=== PATIENT | male | born 1955 | race Caucasian/White ===

== ENCOUNTER 2016-10-25 21:52 | Emergency (ER) | payer OTHER ==
[~2016-10-25] VITALS: Ht 175.3 cm; Wt 104.8 kg
[2016-10-25] MEDS ORDERED: LEVETIRACETAM 500 MG TAB PO STA (22:08)
--- NOTE | 2016-10-25 22:13 | EMERGENCY ROOM VISIT NOTE ---
History Report prepared by Corey: Sundeep Bradshaw Under the Supervision of: Dr. Martin Jaarmillo D.O. First contact with patient: 22:00 Chief Complaint: ALCOHOL OVERDOSE Stated Complaint: ETOH History of Present Illness The patient is a 61 year old male who presents to the Emergency Room with complaints of alcohol intoxication that began a couple of hours ago. This HPI is limited secondary to intoxication. The patient attended a wedding in [place] , and he is currently in the process of driving back to his home state, [place]. He was in his hotel room this evening and called the ambulance for himself. He has been drinking heavily for the past several days. Today, he was drinking vodka. He states that he wants "to be treated." He also stated that he "cannot go through with withdrawal and expect to live." He notes that has multiple medical problems that include cirrhosis and seizures. He usually takes 2000 mg Keppra PO twice a day, but has not taken any for the past couple of days. 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 Past Medical & Surgical Limited secondary to intoxication Family History Limited secondary to intoxication. Social History Smoking Status: Unknown if Ever Smoked Smokeless Tobacco Use: Unknown Alcohol Use: occasionally Social History: Unable to complete secondary to intoxication. Current/Historical Medications Scheduled Amlodipine (Norvasc), 10 MG PO DAILY Levetiracetam (Keppra), 2,000 MG PO BID Lisinopril (Zestril), Unknown Dose PO DAILY Physical Exam Vital Signs Date Time Temp Pulse Resp B/P (MAP) Pulse Ox O2 Delivery O2 Flow Rate FiO2 10/25/16 22:10 91 Room Air 10/25/16 22:05 97 10/25/16 21:57 36.6 99 21 152/105 96 Room Air Physical Exam GENERAL: Awake, alert, well-appearing, in no distress. Alcohol on breath. HENT: Normocephalic, atraumatic. Oropharynx unremarkable. EYES: Normal conjunctiva. Sclera non-icteric. NECK: Supple. No nuchal rigidity. FROM. No JVD. RESPIRATORY: Clear to auscultation. CARDIAC: Regular rate, normal rhythm. Extremities warm and well perfused. Pulses equal. Mildly hypertensive. ABDOMEN: Soft, non-distended. No tenderness to palpation. No rebound or guarding. No masses. RECTAL: Deferred. MUSCULOSKELETAL: Chest examination reveals no tenderness. The back is symmetrical on inspection without obvious abnormality. There is no CVA tenderness to palpation. No joint edema. LOWER EXTREMITIES: Calves are equal size bilaterally and non-tender. No edema. No discoloration. NEURO: Normal sensorium. No sensory or motor deficits noted. SKIN: No rash or jaundice noted. Medical Decision & Procedures Laboratory Results 10/25/16 22:15 Red Blood Count 4.90, Mean Corpuscular Volume 90.2, Mean Corpuscular Hemoglobin 31.0, Mean Corpuscular Hemoglobin Concent 34.4, Mean Platelet Volume 7.9, Neutrophils (%) (Auto) 49.7, Lymphocytes (%) (Auto) 37.5, Monocytes (%) (Auto) 9.0, Eosinophils (%) (Auto) 2.8, Basophils (%) (Auto) 0.7, Neutrophils # (Auto) 3.33, Lymphocytes # (Auto) 2.51, Monocytes # (Auto) 0.60, Eosinophils # (Auto) 0.19, Basophils # (Auto) 0.05 10/25/16 22:15 Test 10/25/16 22:15 White Blood Count 6.70 K/uL (4.8-10.8) Red Blood Count 4.90 M/uL (4.7-6.1) Hemoglobin 15.2 g/dL (14.0-18.0) Hematocrit 44.2 % (42-52) Mean Corpuscular Volume 90.2 fL (80-100) Mean Corpuscular Hemoglobin 31.0 pg (25-34) Mean Corpuscular Hemoglobin Concent 34.4 g/dl (32-36) Platelet Count 200 K/uL (130-400) Mean Platelet Volume 7.9 fL (7.4-10.4) Neutrophils (%) (Auto) 49.7 % Lymphocytes (%) (Auto) 37.5 % Monocytes (%) (Auto) 9.0 % Eosinophils (%) (Auto) 2.8 % Basophils (%) (Auto) 0.7 % Neutrophils # (Auto) 3.33 K/uL (1.4-6.5) Lymphocytes # (Auto) 2.51 K/uL (1.2-3.4) Monocytes # (Auto) 0.60 K/uL (0.11-0.59) Eosinophils # (Auto) 0.19 K/uL (0-0.5) Basophils # (Auto) 0.05 K/uL (0-0.2) RDW Standard Deviation 43.0 fL (36.4-46.3) RDW Coefficient of Variation 13.1 % (11.5-14.5) Immature Granulocyte % (Auto) 0.3 % Immature Granulocyte # (Auto) 0.02 K/uL (0.00-0.02) Prothrombin Time 10.9 SECONDS (9.0-12.0) Prothromb Time International Ratio 1.0 (0.9-1.1) Activated Partial Thromboplast Time 27.3 SECONDS (21.0-31.0) Partial Thromboplastin Ratio 1.1 Anion Gap 13.0 mmol/L (3-11) Est Creatinine Clear Calc Drug Dose 113.7 ml/min Estimated GFR () 111.6 Estimated GFR (Non- 96.3 BUN/Creatinine Ratio 11.8 (10-20) Calcium Level 8.0 mg/dl (8.5-10.1) Magnesium Level 1.9 mg/dl (1.8-2.4) Total Bilirubin 0.4 mg/dl (0.2-1) Direct Bilirubin 0.2 mg/dl (0-0.2) Aspartate Amino Transf (AST/SGOT) 47 U/L (15-37) Alanine Aminotransferase (ALT/SGPT) 57 U/L (12-78) Alkaline Phosphatase 111 U/L (45-117) Total Protein 7.4 gm/dl (6.4-8.2) Albumin 3.9 gm/dl (3.4-5.0) Lipase 225 U/L (73-393) Thyroid Stimulating Hormone (TSH) 1.860 uIu/ml (0.300-4.500) Ethyl Alcohol mg/dL 422.0 mg/dl (0-3) Laboratory results reviewed by me Medications Administered Medications (Trade) Dose Ordered Sig/Angelica Route Start Time Stop Time Status Last Admin Dose Admin Levetiracetam (Keppra Tab) 1,000 mg ONE STAT PO 10/25/16 22:08 10/25/16 22:09 DC 10/25/16 22:22 1,000 MG ECG Indication: toxicologic Rate (beats per minute): 91 Rhythm: normal sinus Findings: no acute ischemic change, no ectopy ED Course 2199: The patient was evaluated in room B3B. A complete history and physical exam was performed. 2207: Ordered Keppra Tab 1000 mg PO 0: Upon reexamination, the patient was resting. I discussed the test results and treatment plan with him. The patient will be evaluated by Dr. Hugh VALDEZ, for further management. Medical Decision Differential diagnoses include but are not limited to; alcohol abuse, dehydration, electrolyte abnormality, and alcohol withdrawal. Medication Reconciliation: I attest that I have personally reviewed the patient' s current medication list. Blood pressure screening: Patient was found to have an elevated blood pressure and was referred to their primary doctor for recheck and further treatment. Consults Time Called: [phone] Consulting Physician: Dr. Hugh VALDEZ Returned Call: [phone] He will be evaluating the patient for further management and care. Impression Primary Impression: Alcohol use with intoxication Scribe Attestation The scribe's documentation has been prepared under my direction and personally reviewed by me in its entirety. I confirm that the note above accurately reflects all work, treatment, procedures, and medical decision making performed by me. Departure Information Dispostion Being Evaluated By Hospitalist Referrals No Doctor, Assigned (PCP) Patient Instructions My [facility]
[2016-10-25 22:33] LABS: BASO % 0.7 %; BASO ABS # 0.05 K/uL (0-0.2); COMPLETE YES; EOS % 2.8 %; HEMATOCRIT 44.2 % (42-52); IG% 0.3 %; LYMPH % 37.5 %; LYMPH ABS # 2.51 K/uL (1.2-3.4); MEAN CELL VOLUME 90.2 fL (80-100); MEAN CORPUSCULAR HGB CONC 34.4 g/dl (32-36); MEAN PLATELET VOLUME 7.9 fL (7.4-10.4); NEUT % 49.7 %; PLATELET COUNT 200 K/uL (130-400)
[2016-10-25 22:43] LABS: PARTIAL THROMBOPLASTIN RATIO 1.1; PROTHROMBIN TIME (PATIENT) 10.9 SECONDS (9.0-12.0)
[2016-10-25 22:54] LABS: BUN/CREATININE RATIO 11.8 (10-20); CREATININE 0.83 mg/dl (0.60-1.40); MAGNESIUM 1.9 mg/dl (1.8-2.4); POTASSIUM 3.6 mmol/L (3.5-5.1)
[2016-10-25 23:05] LABS: THYROID STIMULATING HORMONE 1.86 uIu/ml (0.300-4.500)
[2016-10-25] MEDS ORDERED: KPP/1000 PO (23:54)
[2016-10-25] MEDS ORDERED: LISI-461 PO (23:55)
[2016-10-25] MEDS ORDERED: AMLO-114 PO (23:56)
[2016-10-26] MEDS ORDERED: OXCA150T3 PO (00:01)
[2016-10-26] MEDS ORDERED: ATOR-22 PO (00:02)
[2016-10-26] MEDS ORDERED: FOLI1TAB7 PO (00:04)
[2016-10-26] MEDS ORDERED: ASPI325T39 PO (00:05)
[2016-10-26] MEDS ORDERED: B-COTAB18 PO (00:07)
[2016-10-26] MEDS ORDERED: CYAN10005 PO (00:07)
[2016-10-26] MEDS ORDERED: CHOL400T PO (00:09)
[2016-10-26 04:27] LABS: URINE APPEARANCE TURBID (CLEAR); URINE COLOR DK YELLOW; URINE EPITHELIAL CELL AUTO 20-30 /lpf (0-5); URINE NITRITE NEG (NEG); URINE SPECIFIC GRAVITY 1.029 (1.000-1.030); UROBILINOGEN NEG (NEG)
[2016-10-26 04:49] LABS: MANUAL MICROSCOPIC REQUIRED? NO; REVIEW REQ? YES
[2016-10-26 04:51] LABS: URINE BILIRUBIN NEG (NEG)
[2016-10-26 05:21] LABS: URINE MUCUS PRESENT (NONE PRSENT)
[2016-10-26] MEDS ORDERED: ONDANSETRON INJ 2 MG/ML 2 ML VIAL IV STA (06:07)
[2016-10-26] MEDS ORDERED: LORAZEPAM 2 MG/ML 1 ML VIAL IV PRN ×2 (06:45)
[2016-10-26] MEDS ORDERED: ALUMINUM/MAGNESIUM/SIMETH (MAALOX MAX) 30 ML UDC PO PRN (06:45)
[2016-10-26] MEDS ORDERED: MAGNESIUM HYDROXIDE SUSP 30 ML UDC PO PRN (06:45)
[2016-10-26] MEDS ORDERED: IV FLUIDS COMPLETED PRN (06:45)
--- NOTE | 2016-10-26 06:55 | History and Physical ---
History & Physical Date & Time of Service: Oct 26, 2016 at 06:40 Chief Complaint: ETOH Primary Care Physician: No Doctor, Assigned History of Present Illness Source: patient 61 y/o M Hx ETOH abuse, cirrhosis, CAD, bipolar disease. Pt was at a wedding in [place] and was travelling back to his home in [place]. He stopped over at a hotel here and drank copious quantities of alcohol. Early AM he called EMS and presented to the ER stating that he would like to be admitted to a rehab facility. He states that he will definitely withdraw from alcohol if he is not admitted to the hospital. His ETOH level was 422 initially. He was evaluated by mental health while in the ER and does not meet criteria for psychiatric admission. Past Medical/Surgical History 1) ETOH abuse - he states that he has been abusing alcohol since age 16 - he had quit between the ages of 41 and 54 and then relapsed. He has been to rehab 9 separate times and has had multiple hospitalizations for DTs. 2) Cirrhosis - denies a history of ascites, varices, encephalopathy. 3) HTN 4) CAD - had a stent placed in his LAD 15 years ago. 5) ETOH abuse 6) HPL 7) Bipolar disease Family History Mother is alive at age 87 Father due to CHF age 84 Social History Smoking Status: Unknown if Ever Smoked Smokeless Tobacco Use: Unknown Allergies Coded Allergies: No Known Allergies (Unverified , 10/26/16) Home Medications Scheduled Amlodipine (Norvasc), 10 MG PO DAILY Aspirin (Aspirin Ec), 325 MG PO DAILY Atorvastatin (Lipitor), Unknown Dose PO DAILY B-Complex Vitamins (Vitamin B Complex), 1 TAB PO DAILY Cholecalciferol (Vitamin D3), 400 UNITS PO DAILY Cyanocobalamin (Vitamin B-12), 1,000 MCG PO DAILY Folic Acid (Folvite), 1 MG PO DAILY Levetiracetam (Keppra), 2,000 MG PO BID Lisinopril (Zestril), Unknown Dose PO DAILY Oxcarbazepine (Trileptal), Unknown Dose PO BID Review of Systems Constitutional: No fever, No chills, No sweats Eyes: No worsening of vision, No eye pain ENT: No hearing loss, No unusual epistaxis, No nasal symptoms Respiratory: No cough, No sputum, No wheezing Cardiovascular: No chest pain, No orthopnea, No PND Abdomen: + nausea, No pain, No vomiting Musculoskeletal: No joint pain, No muscle pain Genitourinary - Male: No hematuria, No dysuria, No urinary frequency, No urinary urgency Neurologic: No memory loss, No paralysis, No weakness Psychiatric: + depression symptoms Endocrine: No fatigue Hematologic / Lymphatic: No abnormal bleeding/bruising Integumentary: No rash Allergic / Immunologic: No environmental allergies Physical Exam Vital Signs Date Time Temp Pulse Resp B/P (MAP) Pulse Ox O2 Delivery O2 Flow Rate FiO2 10/26/16 05:55 103 25 127/86 97 Room Air 10/26/16 04:00 103 20 154/104 92 Room Air 10/26/16 02:00 98 20 147/96 95 Nasal Cannula 2.0 10/25/16 23:55 102 20 151/99 97 Room Air 10/25/16 22:10 91 Room Air 10/25/16 22:05 97 10/25/16 21:57 36.6 99 21 152/105 96 Room Air General Appearance: + pertinent finding (Overweight middle aged male on no distress) Head: normocephalic, atraumatic Eyes: normal inspection, PERRL, EOMI ENT: normal ENT inspection, pharynx normal Neck: supple, no adenopathy, thyroid normal, no JVD Respiratory/Chest: chest non-tender, lungs clear, normal breath sounds, no respiratory distress, no accessory muscle use Cardiovascular: regular rate, rhythm, no edema, no gallop, no JVD, no murmur, normal peripheral pulses Abdomen/GI: normal bowel sounds, non tender, soft Back: normal inspection, no CVA tenderness, no muscle spasm, normal range of motion Extremities/Musculoskelatal: normal inspection, no calf tenderness, normal capillary refill, no pedal edema, normal range of motion 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, no motor/sensory deficits, alert, normal mood/affect, normal reflexes, oriented x 3 Skin: normal color, warm/dry, no rash Diagnostics Laboratory Results Results Past 24 Hours Test 10/25/16 22:15 10/26/16 04:05 10/26/16 05:30 Range/Units White Blood Count 6.70 4.8-10.8 K/uL Red Blood Count 4.90 4.7-6.1 M/uL Hemoglobin 15.2 14.0-18.0 g/dL Hematocrit 44.2 42-52 % Mean Corpuscular Volume 90.2 80-100 fL Mean Corpuscular Hemoglobin 31.0 25-34 pg Mean Corpuscular Hemoglobin Concent 34.4 32-36 g/dl Platelet Count 200 130-400 K/uL Mean Platelet Volume 7.9 7.4-10.4 fL Neutrophils (%) (Auto) 49.7 % Lymphocytes (%) (Auto) 37.5 % Monocytes (%) (Auto) 9.0 % Eosinophils (%) (Auto) 2.8 % Basophils (%) (Auto) 0.7 % Neutrophils # (Auto) 3.33 1.4-6.5 K/uL Lymphocytes # (Auto) 2.51 1.2-3.4 K/uL Monocytes # (Auto) 0.60 0.11-0.59 K/uL Eosinophils # (Auto) 0.19 0-0.5 K/uL Basophils # (Auto) 0.05 0-0.2 K/uL RDW Standard Deviation 43.0 36.4-46.3 fL RDW Coefficient of Variation 13.1 11.5-14.5 % Immature Granulocyte % (Auto) 0.3 % Immature Granulocyte # (Auto) 0.02 0.00-0.02 K/uL Prothrombin Time 10.9 9.0-12.0 SECONDS Prothromb Time International Ratio 1.0 0.9-1.1 Activated Partial Thromboplast Time 27.3 21.0-31.0 SECONDS Partial Thromboplastin Ratio 1.1 Sodium Level 145 136-145 mmol/L Potassium Level 3.6 3.5-5.1 mmol/L Chloride Level 102 98-107 mmol/L Carbon Dioxide Level 30 21-32 mmol/L Anion Gap 13.0 3-11 mmol/L Blood Urea Nitrogen 10 7-18 mg/dl Creatinine 0.83 0.60-1.40 mg/dl Est Creatinine Clear Calc Drug Dose 113.7 ml/min Estimated GFR () 111.6 Estimated GFR (Non- 96.3 BUN/Creatinine Ratio 11.8 10-20 Random Glucose 118 70-99 mg/dl Calcium Level 8.0 8.5-10.1 mg/dl Magnesium Level 1.9 1.8-2.4 mg/dl Total Bilirubin 0.4 0.2-1 mg/dl Direct Bilirubin 0.2 0-0.2 mg/dl Aspartate Amino Transf (AST/SGOT) 47 15-37 U/L Alanine Aminotransferase (ALT/SGPT) 57 12-78 U/L Alkaline Phosphatase 111 45-117 U/L Total Protein 7.4 6.4-8.2 gm/dl Albumin 3.9 3.4-5.0 gm/dl Lipase 225 73-393 U/L Thyroid Stimulating Hormone (TSH) 1.860 0.300-4.500 uIu/ml Ethyl Alcohol mg/dL 422.0 268.0 0-3 mg/dl Urine Color DK YELLOW Urine Appearance TURBID CLEAR Urine pH 5.0 4.5-7.5 Urine Specific [place] 1.029 1.000-1.030 Urine Protein 3+ NEG Urine Glucose (UA) NEG NEG Urine Ketones TRACE NEG Urine Occult Blood TRACE NEG Urine Nitrite NEG NEG Urine Bilirubin NEG NEG Urine Urobilinogen NEG NEG Urine Leukocyte Esterase NEG NEG Urine WBC (Auto) 1-5 0-5 /hpf Urine RBC (Auto) 0-4 0-4 /hpf Urine Hyaline Casts (Auto) >30 0-5 /lpf Urine Epithelial Cells (Auto) 20-30 0-5 /lpf Urine Bacteria (Auto) NEG NEG Urine Crystals AMORPHOUS SEDIMENT NONE PRSENT Urine Pathogenic Casts 0 /lpf Urine Mucus PRESENT NONE PRSENT Microbiology Results 10/26/16 Urine Culture, Received Pending Impression Assessment and Plan 61 y/o M Hx ETOH abuse, cirrhosis, CAD, bipolar disease. Pt was at a wedding in [place] and was travelling back to his home in [place]. He stopped over at a hotel here and drank copious quantities of alcohol. Early AM he called EMS and presented to the ER stating that he would like to be admitted to a rehab facility. He states that he will definitely withdraw from alcohol if he is not admitted to the hospital. His ETOH level was 422 initially. He was evaluated by mental health while in the ER and does not meet criteria for psychiatric admission. 1) Pt is admitted for acute detox - placed on telemetry - provided with IVF, daily banana bag, PRN Ativan and scheduled Librium. 2) Bipolar - cont Keppra 3) CAD - cont ASA, statin - placed on a B evan 4) Early cirrhosis - can f/u with GI as outpt 5) HTN- will cont Lisinopril in addition to Metoprolol Full code - SCDs only due t fall risk Total time for this admit including review of labs, meds - discussion with pt, mental health and ER attending - 33 min Level of Care Telemetry Resuscitation Status FULL RESUSCITATION VTE Prophylaxis VTE Risk Assessment Done? Y/N: Yes Risk Level: Low Given or contraindicated: SCD's
[2016-10-26 07:30] VITALS: O2SAT 98; Ht 175.3 cm; Wt 104.8 kg
[2016-10-26 08:00] VITALS: BP 158/93; PULSE 101; TEMP 36.5; O2SAT 98
[2016-10-26] MEDS: MULTI-VITAMIN INFUSION INJ 10 ML, THIAMINE HCL INJ 100 MG, FoLIC ACID INJ 1 MG in SODIU... IV SCH (09:15)
[2016-10-26] MEDS: ONDANSETRON INJ 2 MG/ML 2 ML VIAL IV PRN ×2 (09:15→16:03)
[2016-10-26] MEDS: ATORVASTATIN 20 MG TAB PO SCH (09:18)
[2016-10-26] MEDS: ASPIRIN 325 MG ECTAB PO SCH (09:18)
[2016-10-26] MEDS: CHOLECALCIFEROL 1000 INTER.UNIT TAB PO SCH (09:18)
[2016-10-26] MEDS: LEVETIRACETAM 500 MG TAB PO SCH ×2 (09:19→20:47)
[2016-10-26] MEDS: AMLODIPINE BESYLATE 5 MG TAB PO SCH (09:19)
[2016-10-26] MEDS: METOPROLOL TARTRATE 25 MG TAB PO SCH ×3 (09:19→20:47)
[2016-10-26] MEDS: LISINOPRIL 10 MG TAB PO SCH (09:19)
[2016-10-26] MEDS ORDERED: NURSING VERBAL MED ORDER ONE ×2 (11:15→13:45)
[2016-10-26 12:19] VITALS: BP 124/75; PULSE 96; TEMP 36.9; O2SAT 96
[2016-10-26] MEDS: D5NSS + 20MEQ KCL 1,000 ML IV SCH ×3 (12:43→23:54)
[2016-10-26] MEDS: CHLORDIAZEPOXIDE 25 MG CAP PO SCH ×2 (14:44→20:51)
--- NOTE | 2016-10-26 14:59 | Progress Note ---
Subjective Date of Service: Oct 26, 2016. Subjective Pt evaluation today including: conversation w/ patient, physical exam, chart review, lab review, review of studies, conversation w/ curriculum consultant, review of inpatient medication list Doing okay for now, however this morning was feeling agitation requiring Ativan , reported decreased appetite, mild and left rib pain, no history of fall Problem List Medical Problems: (1) Alcohol use with intoxication Status: Acute Review of Systems Constitutional: + weakness, + fatigue, No fever, No chills, No sweats, No weight loss, No problem reported Eyes: No worsening of vision, No eye pain, No redness, No discharge, No diplopia ENT: No hearing loss, No unusual epistaxis, No nasal symptoms, No sore throat, No tinnitus, No dental problems, No trouble swallowing Respiratory: No cough, No sputum, No wheezing, No shortness of breath, No dyspnea on exertion, No dyspnea at rest, No hemoptysis Cardiac: No chest pain, No orthopnea, No PND, No edema, No claudication, No palpitations Abdomen: No pain, No nausea, No vomiting, No diarrhea, No constipation Musculoskeletal: + joint pain, No muscle pain, No swelling, No calf pain Male : No dysuria, No urinary frequency, No incontinence, No nocturia more than once/night, No slowing stream, No hematuria Neurologic: No memory loss, No paralysis, No weakness, No numbness/tingling, No vertigo, No balance problems Psychiatric: No depression symptoms, No anhedonism, No anxiety, No insomnia, No substance abuse Heme: No abnormal bleeding/bruising, No clotting problems, No swollen lymph nodes, No night sweats Endo: No fatigue, No excessive thirst, No excessive urination Skin: No rash, No itch, No new/changing skin lesions, No color change, No bleeding Objective Vital Signs Date Time Temp Pulse Resp B/P (MAP) Pulse Ox O2 Delivery O2 Flow Rate FiO2 10/26/16 12:19 36.9 96 18 124/75 (91) 96 Room Air 10/26/16 07:37 103 21 152/96 98 10/26/16 07:30 98 Nasal Cannula 2.0 10/26/16 07:07 101 21 152/96 97 Nasal Cannula 2.0 10/26/16 05:55 103 25 127/86 97 Room Air 10/26/16 04:00 103 20 154/104 92 Room Air 10/26/16 02:00 98 20 147/96 95 Nasal Cannula 2.0 10/25/16 23:55 102 20 151/99 97 Room Air 10/25/16 22:10 91 Room Air 10/25/16 22:05 97 10/25/16 21:57 36.6 99 21 152/105 96 Room Air Physical Exam General Appearance: WD/WN, no apparent distress, + obese Eyes: normal inspection, PERRL, EOMI, sclerae normal ENT: normal ENT inspection, hearing grossly normal, pharynx normal Neck: supple, no adenopathy, thyroid normal, no JVD, no carotid bruits, trachea midline Respiratory/Chest: chest non-tender, normal breath sounds, no respiratory distress, no accessory muscle use, + decreased breath sounds Cardiovascular: regular rate, rhythm, no edema, no gallop, no JVD, no murmur Abdomen: normal bowel sounds, soft, no organomegaly, no pulsatile mass, + distended (mild) Extremities: normal range of motion, non-tender, normal inspection, no pedal edema, no calf tenderness, normal capillary refill, pelvis stable 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/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, no motor/sensory deficits, alert, normal mood/affect, oriented x 3 Skin: normal color, warm/dry, no rash Lymphatic: no adenopathy Laboratory Results Last 24 Hours Test 10/25/16 22:15 10/26/16 04:05 10/26/16 05:30 White Blood Count 6.70 K/uL Red Blood Count 4.90 M/uL Hemoglobin 15.2 g/dL Hematocrit 44.2 % Mean Corpuscular Volume 90.2 fL Mean Corpuscular Hemoglobin 31.0 pg Mean Corpuscular Hemoglobin Concent 34.4 g/dl Platelet Count 200 K/uL Mean Platelet Volume 7.9 fL Neutrophils (%) (Auto) 49.7 % Lymphocytes (%) (Auto) 37.5 % Monocytes (%) (Auto) 9.0 % Eosinophils (%) (Auto) 2.8 % Basophils (%) (Auto) 0.7 % Neutrophils # (Auto) 3.33 K/uL Lymphocytes # (Auto) 2.51 K/uL Monocytes # (Auto) 0.60 K/uL Eosinophils # (Auto) 0.19 K/uL Basophils # (Auto) 0.05 K/uL RDW Standard Deviation 43.0 fL RDW Coefficient of Variation 13.1 % Immature Granulocyte % (Auto) 0.3 % Immature Granulocyte # (Auto) 0.02 K/uL Prothrombin Time 10.9 SECONDS Prothromb Time International Ratio 1.0 Activated Partial Thromboplast Time 27.3 SECONDS Partial Thromboplastin Ratio 1.1 Sodium Level 145 mmol/L Potassium Level 3.6 mmol/L Chloride Level 102 mmol/L Carbon Dioxide Level 30 mmol/L Anion Gap 13.0 mmol/L Blood Urea Nitrogen 10 mg/dl Creatinine 0.83 mg/dl Est Creatinine Clear Calc Drug Dose 113.7 ml/min Estimated GFR () 111.6 Estimated GFR (Non- 96.3 BUN/Creatinine Ratio 11.8 Random Glucose 118 mg/dl Calcium Level 8.0 mg/dl Magnesium Level 1.9 mg/dl Total Bilirubin 0.4 mg/dl Direct Bilirubin 0.2 mg/dl Aspartate Amino Transf (AST/SGOT) 47 U/L Alanine Aminotransferase (ALT/SGPT) 57 U/L Alkaline Phosphatase 111 U/L Total Protein 7.4 gm/dl Albumin 3.9 gm/dl Lipase 225 U/L Thyroid Stimulating Hormone (TSH) 1.860 uIu/ml Ethyl Alcohol mg/dL 422.0 mg/dl 268.0 mg/dl Urine Color DK YELLOW Urine Appearance TURBID Urine pH 5.0 Urine Specific [place] 1.029 Urine Protein 3+ Urine Glucose (UA) NEG Urine Ketones TRACE Urine Occult Blood TRACE Urine Nitrite NEG Urine Bilirubin NEG Urine Urobilinogen NEG Urine Leukocyte Esterase NEG Urine WBC (Auto) 1-5 /hpf Urine RBC (Auto) 0-4 /hpf Urine Hyaline Casts (Auto) >30 /lpf Urine Epithelial Cells (Auto) 20-30 /lpf Urine Bacteria (Auto) NEG Urine Crystals AMORPHOUS SEDIMENT Urine Pathogenic Casts /lpf Urine Mucus PRESENT Assessment and Plan 61 y/o M needed on 10/25/2016 because of alcohol intoxication Per report , pt was at a wedding in [place] and was travelling back to his home in [place]. He stopped over at a hotel here and drank copious quantities of alcohol. Early AM he called EMS and presented to the ER stating that he would like to be admitted to a rehab facility. He states that he will definitely withdraw from alcohol if he is not admitted to the hospital. His ETOH level was 422 initially. He was evaluated by mental health while in the ER and does not meet criteria for psychiatric admission. medical history" ETOH abuse, cirrhosis, CAD, bipolar disease Acute INTOXICATION with history of alcohol abuse continue telemetry Continue provided with IVF, daily banana bag, PRN Ativan and add scheduled Librium. Ordered urine toxic screen Bipolar stable, no suicidal homicidal - cont Keppra CAD -, stable , cont ASA, statin - placed on a B evan, will check one set more Cardizem enzyme troponin because of left abdominal pain Early cirrhosis - can f/u with GI as outpt HTN: Stable, cont Lisinopril in addition to Metoprolol Full code - SCDs only due t fall risk Discussed with patient and nurse about care plan answer all questions Continued [facility] stay due to: multiple IV medications needed Discharge planning: home
[2016-10-26 15:15] VITALS: BP 145/80; PULSE 91; TEMP 36.9; O2SAT 95
[2016-10-26] MEDS: LORAZEPAM 2 MG/ML 1 ML VIAL IV PRN ×3 (17:04→23:55)
[2016-10-26 19:29] VITALS: BP 163/93; PULSE 100; TEMP 36.8; O2SAT 94
[2016-10-26 20:00] VITALS: O2SAT 94
[2016-10-27] VITALS (9 sets, daily range): BP systolic 135–158; BP diastolic 84–98; PULSE 71–121; TEMP 36.4–37; O2SAT 92–98
[2016-10-27 00:24] LABS: BENZODIAZEPINE, URINE NEG (NEG); COCAINE,URINE NEG (NEG); PHENCYCLIDINE, URINE NEG (NEG)
[2016-10-27] MEDS: LORAZEPAM 2 MG/ML 1 ML VIAL IV PRN ×2 (04:09→14:55)
[2016-10-27] MEDS: D5NSS + 20MEQ KCL 1,000 ML IV SCH ×2 (07:58→11:58)
[2016-10-27] MEDS: MULTI-VITAMIN INFUSION INJ 10 ML, THIAMINE HCL INJ 100 MG, FoLIC ACID INJ 1 MG in SODIU... IV SCH (08:04)
[2016-10-27] MEDS: CHLORDIAZEPOXIDE 25 MG CAP PO SCH ×3 (08:04→20:18)
[2016-10-27] MEDS: LEVETIRACETAM 500 MG TAB PO SCH ×2 (08:07→20:18)
[2016-10-27] MEDS: LISINOPRIL 10 MG TAB PO SCH (08:07)
[2016-10-27] MEDS: CHOLECALCIFEROL 1000 INTER.UNIT TAB PO SCH (08:07)
[2016-10-27] MEDS: PANTOprazole SOD 40 MG TAB PO SCH (08:07)
[2016-10-27] MEDS: ATORVASTATIN 20 MG TAB PO SCH (08:08)
[2016-10-27] MEDS: ASPIRIN 325 MG ECTAB PO SCH (08:08)
[2016-10-27] MEDS: AMLODIPINE BESYLATE 5 MG TAB PO SCH (08:08)
[2016-10-27] MEDS: METOPROLOL TARTRATE 25 MG TAB PO SCH ×3 (08:09→20:18)
[2016-10-27] MEDS: ENOXAPARIN 40 MG/0.4 ML SYR SQ SCH (08:10)
[2016-10-27] MEDS ORDERED: NURSING VERBAL MED ORDER ONE (16:15)
--- NOTE | 2016-10-27 16:54 | Progress Note ---
Subjective Date of Service: Oct 27, 2016. Subjective Pt evaluation today including: conversation w/ patient, physical exam, chart review, conversation w/ clinical practice consultant, review of inpatient medication list Still feeling anxious, associated with tremor, otherwise general condition getting better Problem List Medical Problems: (1) Alcohol use with intoxication Status: Acute Review of Systems Constitutional: No fever, No chills, No sweats, No weight loss, No weakness, No fatigue, No problem reported Eyes: No worsening of vision, No eye pain, No redness, No discharge, No diplopia ENT: No hearing loss, No unusual epistaxis, No nasal symptoms, No sore throat, No tinnitus, No dental problems, No trouble swallowing Respiratory: No cough, No sputum, No wheezing, No shortness of breath, No dyspnea on exertion, No dyspnea at rest, No hemoptysis Cardiac: No chest pain, No orthopnea, No PND, No edema, No claudication, No palpitations Abdomen: + problem reported (distention), No pain, No nausea, No vomiting, No diarrhea, No constipation Musculoskeletal: No joint pain, No muscle pain, No swelling, No calf pain Male : No dysuria, No urinary frequency, No incontinence, No nocturia more than once/night, No slowing stream, No hematuria Neurologic: + problem reported (tremor), No memory loss, No paralysis, No weakness, No numbness/tingling, No vertigo, No balance problems Psychiatric: + anxiety, No depression symptoms, No anhedonism, No insomnia, No substance abuse Heme: No abnormal bleeding/bruising, No clotting problems, No swollen lymph nodes, No night sweats Endo: No fatigue, No excessive thirst, No excessive urination Skin: No rash, No itch, No new/changing skin lesions, No color change, No bleeding Objective Vital Signs Date Time Temp Pulse Resp B/P (MAP) Pulse Ox O2 Delivery O2 Flow Rate FiO2 10/27/16 16:00 Room Air 10/27/16 15:51 36.6 82 18 142/93 (109) 94 Room Air 10/27/16 12:12 36.6 88 18 155/98 (117) 93 10/27/16 12:00 Room Air 10/27/16 08:42 36.6 96 16 143/84 (103) 96 Room Air 10/27/16 07:30 Room Air 10/27/16 04:00 96 Nasal Cannula 2.0 10/27/16 04:00 36.6 71 18 135/89 (104) 92 Nasal Cannula 2.0 10/27/16 00:01 96 Nasal Cannula 2.0 10/27/16 00:00 37.0 96 19 138/87 (104) 96 Nasal Cannula 2.0 10/26/16 20:00 94 Nasal Cannula 2.0 10/26/16 19:29 36.8 100 18 163/93 (116) 94 Nasal Cannula 2.0 Physical Exam General Appearance: WD/WN, no apparent distress, + obese Eyes: normal inspection, PERRL, EOMI, sclerae normal ENT: normal ENT inspection, hearing grossly normal, pharynx normal Neck: supple, no adenopathy, thyroid normal, no JVD, no carotid bruits, trachea midline Respiratory/Chest: chest non-tender, normal breath sounds, no respiratory distress, no accessory muscle use, + decreased breath sounds Cardiovascular: regular rate, rhythm, no edema, no gallop, no JVD, no murmur Abdomen: normal bowel sounds, non tender, soft, no organomegaly, no pulsatile mass Extremities: normal range of motion, non-tender, normal inspection, no pedal edema, no calf tenderness, normal capillary refill, pelvis stable Neurologic/Psychiatric: personnel monitor II-XII nml as tested, no motor/sensory deficits, alert, normal mood/affect, oriented x 3, + pertinent finding (mildly anxious) Skin: normal color, warm/dry, no rash Lymphatic: no adenopathy Laboratory Results Last 24 Hours Test 10/26/16 23:45 Urine Opiates Screen NEG Urine Methadone, Qualitative NEG Urine Barbiturates NEG Urine Phencyclidine (PCP) Level NEG Ur Amphetamine/Methamphetamine NEG MDMA (Ecstasy) Screen NEG Urine Benzodiazepines Screen NEG Urine Cocaine Metabolite NEG Urine Marijuana (THC) NEG Assessment and Plan 61 y/o M needed on 10/25/2016 because of alcohol intoxication Per report , pt was at a wedding in [place] and was travelling back to his home in [place]. He stopped over at a hotel here and drank copious quantities of alcohol. Early AM he called EMS and presented to the ER stating that he would like to be admitted to a rehab facility. He states that he will definitely withdraw from alcohol if he is not admitted to the hospital. His ETOH level was 422 initially. He was evaluated by mental health while in the ER and does not meet criteria for psychiatric admission. medical history" ETOH abuse, cirrhosis, CAD, bipolar disease Acute INTOXICATION with history of alcohol abuse: Stable and improving Been on telemetry , will transfer to [facility] search Discontinue IVF, continue daily banana bag, PRN Ativan and add scheduled Librium. Ordered urine toxic screen which was neg Bipolar stable, no suicidal homicidal - cont Keppra Chronic left chest wall pain, no history of alcohol, cardiac enzyme troponin negative, will do chest wall x-ray Early cirrhosis - encourage him f/u with GI as outpt HTN: Stable, cont Lisinopril in addition to Metoprolol Full code - SCDs only due t fall risk Discussed with patient and nurse about care plan answer all questions Possible discharge tomorrow Continued [facility] stay due to: multiple IV medications needed Discharge planning: home
[2016-10-27] MEDS: ACETAMINOPHEN 325 MG TAB PO PRN (16:58)
--- NOTE | 2016-10-27 17:38 | DIAGNOSTIC IMAGING REPORT ---
LEFT RIBS UNILATERAL WITH PA CHEST CLINICAL HISTORY: Left chest wall pain. COMPARISON STUDY: No previous studies for comparison. FINDINGS: The erect chest reveals no pneumothorax. There is no focal pulmonary consolidation. No left-sided rib fractures are visualized. IMPRESSION: No evidence of pneumothorax. No left-sided rib fractures are visualized. Electronically signed by: Pedrito Katz M.D. 10/27/2016 5:37 PM Dictated Date/Time: 10/27/2016 5:36 PM
[2016-10-27] MEDS ORDERED: LORAZEPAM INJ 1 MG in SYRINGE 0.5 ML IV PRN (19:30)
[2016-10-27] MEDS: LORAZEPAM INJ 2 MG in SYRINGE 1 ML IV PRN (23:31)
[2016-10-28] VITALS (7 sets, daily range): BP systolic 123–148; BP diastolic 81–108; PULSE 63–95; TEMP 36.5–37.2; O2SAT 94–100
[2016-10-28] MEDS: LORAZEPAM 2 MG/ML 1 ML VIAL IV PRN ×3 (00:33→06:41)
[2016-10-28] MEDS ORDERED: NURSING VERBAL MED ORDER STA (01:12)
[2016-10-28] MEDS ORDERED: LORAZEPAM 2 MG/ML 1 ML VIAL IV STA (02:16)
[2016-10-28] MEDS: LORAZEPAM INJ 2 MG in SYRINGE 1 ML IV PRN (03:26)
[2016-10-28 06:32] LABS: BASO % 0.3 %; BASO ABS # 0.02 K/uL (0-0.2); COMPLETE YES; HEMATOCRIT 39.3 % (42-52); IG% 0.3 %; LYMPH % 29.9 %; LYMPH ABS # 2.04 K/uL (1.2-3.4); MEAN CORPUSCULAR HEMOGLOBIN 31.4 pg (25-34); MEAN CORPUSCULAR HGB CONC 34.1 g/dl (32-36); MEAN PLATELET VOLUME 8.3 fL (7.4-10.4); MONO % 8.1 %; NEUT % 61.4 %; PLATELET COUNT 115 K/uL (130-400); RED BLOOD COUNT 4.27 M/uL (4.7-6.1); WHITE BLOOD COUNT 6.83 K/uL (4.8-10.8)
[2016-10-28 07:02] LABS: BUN/CREATININE RATIO 9.8 (10-20); CALCIUM 8.4 mg/dl (8.5-10.1); CREATININE 0.7 mg/dl (0.60-1.40); MAGNESIUM 1.6 mg/dl (1.8-2.4); POTASSIUM 3.7 mmol/L (3.5-5.1)
[2016-10-28] MEDS ORDERED: MAGNESIUM SULFATE 1GM / D5W 1 GM in PREMIXED IN D5W 100 ML IV ONE (08:30)
[2016-10-28] MEDS: MULTI-VITAMIN INFUSION INJ 10 ML, THIAMINE HCL INJ 100 MG, FoLIC ACID INJ 1 MG in SODIU... IV SCH (08:36)
[2016-10-28] MEDS: LEVETIRACETAM 500 MG TAB PO SCH ×2 (08:49→20:03)
[2016-10-28] MEDS: ASPIRIN 325 MG ECTAB PO SCH (08:49)
[2016-10-28] MEDS: AMLODIPINE BESYLATE 5 MG TAB PO SCH (08:49)
[2016-10-28] MEDS: LISINOPRIL 10 MG TAB PO SCH (08:50)
[2016-10-28] MEDS: METOPROLOL TARTRATE 25 MG TAB PO SCH ×2 (08:50→20:03)
[2016-10-28] MEDS: CHOLECALCIFEROL 1000 INTER.UNIT TAB PO SCH (08:50)
[2016-10-28] MEDS: ENOXAPARIN 40 MG/0.4 ML SYR SQ SCH (08:51)
[2016-10-28] MEDS: CHLORDIAZEPOXIDE 25 MG CAP PO SCH ×3 (08:51→20:02)
[2016-10-28] MEDS: PANTOprazole SOD 40 MG TAB PO SCH (09:00)
[2016-10-28] MEDS: ATORVASTATIN 20 MG TAB PO SCH (09:00)
[2016-10-28] MEDS: ACETAMINOPHEN 325 MG TAB PO PRN (15:33)
--- NOTE | 2016-10-28 17:42 | Progress Note ---
Subjective Date of Service: Oct 28, 2016. Subjective this pt is still fairly sedate from withdrawal and medication to prevent it told me he was but later his mother told nursing that he was not, pt sleeps easily but also can be awoken easily and can eat small sips and protect airway Problem List Medical Problems: (1) Alcohol use with intoxication Status: Acute Review of Systems Constitutional: No fever, No chills Respiratory: No cough, No sputum Cardiac: No chest pain, No orthopnea Abdomen: No pain, No nausea Musculoskeletal: No joint pain, No muscle pain Male : No dysuria, No urinary frequency Neurologic: + memory loss, + weakness Psychiatric: + depression symptoms, + substance abuse Objective Vital Signs Date Time Temp Pulse Resp B/P (MAP) Pulse Ox O2 Delivery O2 Flow Rate FiO2 10/28/16 06:47 37.2 95 20 147/108 (121) 100 Nasal Cannula 2.0 10/28/16 04:00 Room Air 10/28/16 03:02 36.8 71 19 126/90 (102) 94 Room Air 10/28/16 00:00 Room Air 10/27/16 23:18 36.4 75 20 158/97 (117) 97 Room Air 10/27/16 17:49 36.9 79 18 143/85 (104) 98 Room Air 10/27/16 17:04 36.6 82 18 94 2.0 10/27/16 16:00 Room Air 10/27/16 15:51 36.6 82 18 142/93 (109) 94 Room Air 10/27/16 12:12 36.6 88 18 155/98 (117) 93 10/27/16 12:00 Room Air 10/27/16 08:42 36.6 96 16 143/84 (103) 96 Room Air Physical Exam General Appearance: WD/WN, + moderate distress Eyes: PERRL, EOMI Neck: supple, no JVD Respiratory/Chest: chest non-tender, lungs clear Cardiovascular: regular rate, rhythm, no murmur Abdomen: normal bowel sounds, non tender, soft Extremities: no pedal edema, no calf tenderness Neurologic/Psychiatric: alert, + depressed affect, + disoriented Laboratory Results Last 24 Hours Test 10/28/16 06:10 White Blood Count 6.83 K/uL Red Blood Count 4.27 M/uL Hemoglobin 13.4 g/dL Hematocrit 39.3 % Mean Corpuscular Volume 92.0 fL Mean Corpuscular Hemoglobin 31.4 pg Mean Corpuscular Hemoglobin Concent 34.1 g/dl Platelet Count 115 K/uL Mean Platelet Volume 8.3 fL Neutrophils (%) (Auto) 61.4 % Lymphocytes (%) (Auto) 29.9 % Monocytes (%) (Auto) 8.1 % Eosinophils (%) (Auto) 0.0 % Basophils (%) (Auto) 0.3 % Neutrophils # (Auto) 4.20 K/uL Lymphocytes # (Auto) 2.04 K/uL Monocytes # (Auto) 0.55 K/uL Eosinophils # (Auto) 0.00 K/uL Basophils # (Auto) 0.02 K/uL RDW Standard Deviation 42.9 fL RDW Coefficient of Variation 12.7 % Immature Granulocyte % (Auto) 0.3 % Immature Granulocyte # (Auto) 0.02 K/uL Sodium Level 141 mmol/L Potassium Level 3.7 mmol/L Chloride Level 102 mmol/L Carbon Dioxide Level 31 mmol/L Anion Gap 8.0 mmol/L Blood Urea Nitrogen 7 mg/dl Creatinine 0.70 mg/dl Est Creatinine Clear Calc Drug Dose 135.1 ml/min Estimated GFR () 119.7 Estimated GFR (Non- 103.3 BUN/Creatinine Ratio 9.8 Random Glucose 114 mg/dl Calcium Level 8.4 mg/dl Magnesium Level 1.6 mg/dl Total Bilirubin 1.0 mg/dl Direct Bilirubin 0.3 mg/dl Aspartate Amino Transf (AST/SGOT) 34 U/L Alanine Aminotransferase (ALT/SGPT) 42 U/L Alkaline Phosphatase 100 U/L Total Protein 7.1 gm/dl Albumin 3.9 gm/dl Assessment and Plan 61 y/o M admitted with acute alcohol intoxication and concern for withdrawal, Per report , pt was at a wedding in [place] and was travelling back to his home in [place]. He stopped over at a hotel here and drank copious quantities of alcohol. Early AM he called EMS and presented to the ER stating that he would like to be admitted to a rehab facility. medical history" ETOH abuse, cirrhosis, CAD, bipolar disease On librium tapering dose and keppra for his bipolar disease, will likely need referred back to his home area for rehab Continued [facility] stay due to: multiple IV medications needed Discharge planning: home
[2016-10-29] VITALS (9 sets, daily range): BP systolic 109–141; BP diastolic 73–89; PULSE 64–75; TEMP 36.4–36.7; O2SAT 92–98
[2016-10-29 07:46] LABS: HEMATOCRIT 37.5 % (42-52); MEAN CELL VOLUME 90.4 fL (80-100); MEAN CORPUSCULAR HEMOGLOBIN 31.1 pg (25-34); MEAN CORPUSCULAR HGB CONC 34.4 g/dl (32-36); MEAN PLATELET VOLUME 8.2 fL (7.4-10.4); PLATELET COUNT 112 K/uL (130-400); RED BLOOD COUNT 4.15 M/uL (4.7-6.1); WHITE BLOOD COUNT 6.22 K/uL (4.8-10.8)
[2016-10-29 08:17] LABS: CREATININE 0.72 mg/dl (0.60-1.40)
[2016-10-29] MEDS: PANTOprazole SOD 40 MG TAB PO SCH (08:22)
[2016-10-29] MEDS: LEVETIRACETAM 500 MG TAB PO SCH ×2 (08:22→19:42)
[2016-10-29] MEDS: METOPROLOL TARTRATE 25 MG TAB PO SCH ×2 (08:22→19:42)
[2016-10-29] MEDS: ATORVASTATIN 20 MG TAB PO SCH (08:22)
[2016-10-29] MEDS: CHOLECALCIFEROL 1000 INTER.UNIT TAB PO SCH (08:23)
[2016-10-29] MEDS: LISINOPRIL 10 MG TAB PO SCH (08:23)
[2016-10-29] MEDS: ASPIRIN 325 MG ECTAB PO SCH (08:23)
[2016-10-29] MEDS: ENOXAPARIN 40 MG/0.4 ML SYR SQ SCH (08:24)
[2016-10-29] MEDS: AMLODIPINE BESYLATE 5 MG TAB PO SCH (08:24)
[2016-10-29] MEDS: ACETAMINOPHEN 325 MG TAB PO PRN ×2 (08:28→19:46)
[2016-10-29] MEDS: MULTI-VITAMIN INFUSION INJ 10 ML, THIAMINE HCL INJ 100 MG, FoLIC ACID INJ 1 MG in SODIU... IV SCH (08:28)
[2016-10-29] MEDS: CHLORDIAZEPOXIDE 25 MG CAP PO SCH ×2 (08:28→14:02)
[2016-10-29] MEDS: POLYETHYLENE (MIRALAX) 17 GM PACK PO PRN (14:25)
--- NOTE | 2016-10-29 19:03 | Progress Note ---
Subjective Date of Service: Oct 29, 2016. Subjective pt is much more awake and aware, desires to go home Problem List Medical Problems: (1) Alcohol use with intoxication Status: Acute Review of Systems Constitutional: No fever, No chills Respiratory: No cough, No sputum, No shortness of breath Cardiac: No chest pain, No orthopnea, No PND, No edema Abdomen: No pain, No nausea, No vomiting, No diarrhea Male : No dysuria, No urinary frequency Objective Vital Signs Date Time Temp Pulse Resp B/P (MAP) Pulse Ox O2 Delivery O2 Flow Rate FiO2 10/29/16 15:24 Room Air 10/29/16 15:01 36.7 66 18 121/83 (96) 98 Room Air 10/29/16 11:37 97 Room Air 10/29/16 11:30 36.6 64 18 124/84 (97) 97 Room Air 10/29/16 10:59 36.5 75 18 97 2.0 10/29/16 08:00 97 Room Air 10/29/16 07:26 36.5 75 18 141/89 (106) 94 Room Air 10/29/16 04:02 36.7 67 22 118/82 (94) 93 Room Air 10/28/16 23:59 97 Room Air 10/28/16 23:50 36.5 63 22 125/81 (96) 97 Room Air Physical Exam General Appearance: WD/WN, + mild distress Eyes: PERRL, EOMI Neck: supple, no JVD Respiratory/Chest: chest non-tender, lungs clear Cardiovascular: regular rate, rhythm, no murmur Abdomen: normal bowel sounds, non tender, soft Extremities: no pedal edema, no calf tenderness Laboratory Results Last 24 Hours Test 10/29/16 07:18 White Blood Count 6.22 K/uL Red Blood Count 4.15 M/uL Hemoglobin 12.9 g/dL Hematocrit 37.5 % Mean Corpuscular Volume 90.4 fL Mean Corpuscular Hemoglobin 31.1 pg Mean Corpuscular Hemoglobin Concent 34.4 g/dl RDW Standard Deviation 42.1 fL RDW Coefficient of Variation 12.7 % Platelet Count 112 K/uL Mean Platelet Volume 8.2 fL Creatinine 0.72 mg/dl Est Creatinine Clear Calc Drug Dose 130.9 ml/min Estimated GFR () 118.3 Estimated GFR (Non- 102.1 Assessment and Plan 61 y/o M admitted with acute alcohol intoxication and concern for withdrawal, Per report , pt was at a wedding in [place] and was travelling back to his home in [place]. He stopped over at a hotel here and drank copious quantities of alcohol. Early AM he called EMS and presented to the ER stating that he would like to be admitted to a rehab facility. medical history" ETOH abuse, cirrhosis, CAD, bipolar disease IMproved on n librium tapering dose and keppra for his bipolar disease, will likely need referred back to his home area for rehab, will try to reduce or stop librium Continued [facility] stay due to: multiple IV medications needed Discharge planning: home
[2016-10-29] MEDS: CHLORDIAZEPOXIDE 10 MG CAP PO SCH (19:46)
[2016-10-30 07:11] VITALS: BP 132/85; PULSE 63; TEMP 36.2; O2SAT 94
[2016-10-30] MEDS: ASPIRIN 325 MG ECTAB PO SCH (08:13)
[2016-10-30] MEDS: ATORVASTATIN 20 MG TAB PO SCH (08:14)
[2016-10-30] MEDS: CHLORDIAZEPOXIDE 10 MG CAP PO SCH (08:14)
[2016-10-30] MEDS: AMLODIPINE BESYLATE 5 MG TAB PO SCH (08:14)
[2016-10-30] MEDS: METOPROLOL TARTRATE 25 MG TAB PO SCH (08:14)
[2016-10-30] MEDS: CHOLECALCIFEROL 1000 INTER.UNIT TAB PO SCH (08:14)
[2016-10-30] MEDS: LISINOPRIL 10 MG TAB PO SCH (08:15)
[2016-10-30] MEDS: ENOXAPARIN 40 MG/0.4 ML SYR SQ SCH (08:15)
[2016-10-30] MEDS: MULTI-VITAMIN INFUSION INJ 10 ML, THIAMINE HCL INJ 100 MG, FoLIC ACID INJ 1 MG in SODIU... IV SCH (08:16)
[2016-10-30] MEDS: LEVETIRACETAM 500 MG TAB PO SCH (08:16)
[2016-10-30] MEDS: PANTOprazole SOD 40 MG TAB PO SCH (08:16)
--- NOTE | 2016-10-30 08:43 | Discharge Instructions ---
Discharge Instructions Date of Service Oct 30, 2016. Admission Reason for Admission: Alcohol Use With Intoxication Discharge Discharge Diagnosis / Problem: alcohol detox Discharge Goals Goal(s): Therapeutic intervention Activity Recommendations Activity Limitations: resume your previous activity Please abstain from Alcohol Please contact your local AA and return to meetings . Current Hospital Diet Patient's current hospital diet: AHA Diet (Heart Healthy) Discharge Diet Recommended Diet: Regular Diet Pending Studies Studies pending at discharge: no Medical Emergencies . Who to Call and When: Medical Emergencies: If at any time you feel your situation is an emergency, please call 911 immediately. . Non-Emergent Contact Non-Emergency issues call your: Primary Care Provider Call Non-Emergent contact if: temperature is above 101, your pain is unusual for you . . "Provider Documentation" section prepared by Chuy Wing. . VTE Core Measure Inpt VTE Proph given/why not?: SCD's
[2016-10-30] MEDS: POLYETHYLENE (MIRALAX) 17 GM PACK PO PRN (08:55)
[2016-10-30] MEDS ORDERED: BISACODYL 10 MG SUPP PR STA (09:22)
[2016-10-30 11:19] VITALS: BP 132/85; PULSE 63; TEMP 36.2; O2SAT 94
--- NOTE | 2016-10-30 15:33 | Discharge Summary ---
Discharge Summary Date of Service Oct 30, 2016. Discharge Summary Admission Date: Oct 26, 2016 at 06:33 Discharge Date: Oct 30, 2016 Principal Diagnosis: alcohol withdrawal Medication Reconciliation Continued Medications: Amlodipine (Norvasc) 10 Mg Tab 10 MG PO DAILY, TAB Aspirin (Aspirin Ec) 325 Mg Tab 325 MG PO DAILY Atorvastatin (Lipitor) Unknown Strength Tab Unknown Dose PO DAILY, TAB B-Complex Vitamins (Vitamin B Complex) 1 Tab Tab 1 TAB PO DAILY Cholecalciferol (Vitamin D3) 400 Unit Tab 400 UNITS PO DAILY Cyanocobalamin (Vitamin B-12) 1,000 Mcg Tab 1000 MCG PO DAILY, TAB Folic Acid (Folvite) 1 Mg Tab 1 MG PO DAILY, TAB Levetiracetam (Keppra) 1,000 Mg Tab 2000 MG PO BID, TAB Lisinopril (Zestril) Unknown Strength Tab Unknown Dose PO DAILY, TAB Oxcarbazepine (Trileptal) Unknown Strength Tab Unknown Dose PO BID, TAB Discharge Exam Review of Systems: Constitutional: No fever, No chills Neurologic: No memory loss, No paralysis, No weakness Psychiatric: + substance abuse, No depression symptoms, No anhedonism Physical Exam: General Appearance: WD/WN, no apparent distress Eyes: PERRL, EOMI Neck: supple, no JVD Respiratory/Chest: chest non-tender, lungs clear, normal breath sounds Cardiovascular: regular rate, rhythm, no murmur Abdomen / GI: normal bowel sounds, non tender, soft Hospital Course 61 y/o M admitted with acute alcohol intoxication and concern for withdrawal, Per report , pt was at a wedding in [place] and was travelling back to his home in [place]. He stopped over at a hotel here and drank copious quantities of alcohol. Early AM he called EMS and presented to the ER stating that he would like to be admitted to a rehab facility. medical history" ETOH abuse, cirrhosis, CAD, bipolar disease IMproved on librium tapering dose and keppra for his bipolar disease, will likely need referred back to his home area for rehab, will stop librium and encourage him to return home and enroll in AA Total Time Spent: Greater than 30 minutes This includes examination of the patient, discharge planning, medication reconciliation, and communication with other providers. Discharge Instructions Please refer to the electronic Patient Visit Report (Discharge Instructions) for additional information.
== END 2016-10-30 11:36 | disposition home or self-care (01) ==
LOC: C.EDB 22:00 → C.2T 10-26 06:33 → ENRESERV 10-26 06:43 → C.MS2W 10-27 17:43 → ENRESERV 10-28 01:26 → C.2E 10-28 02:09 → ENRESERV 10-29 09:57 → C.MS4W 10-29 11:09
PROVIDERS: ADMIT Internal Medicine; ATTEND Internal Medicine
DX: F10.129 Alcohol abuse with intoxication, unspecified (principal); K74.60 Unspecified cirrhosis of liver; R56.9 Unspecified convulsions; Y90.8 Blood alcohol level of 240 mg/100 ml or more; I25.10 Atherosclerotic heart disease of native coronary artery without angina pectoris; I10 Essential (primary) hypertension; F31.9 Bipolar disorder, unspecified; Z79.82 Long term (current) use of aspirin